=== PATIENT | female | born 1975 | race Caucasian/White ===

== ENCOUNTER 2023-07-06 08:11 | Outpatient (CLI) | payer BC, SELFPAY ==
--- NOTE | 2023-07-06 08:15 | CRLHL7_ITS ---
For Patients: As a result of the Century Cures Act, medical imaging exams and procedure reports are released immediately into your electronic medical record. You may view this report before your referring provider. If you have questions, please contact your health care provider. INDICATION: First trimester scan, establish dates. COMPARISON: None. TECHNIQUE: Real-time soto-scale imaging of the pelvis was performed. FINDINGS: Intrauterine gestational sac is present with a mean sac diameter of 3.3 cm, 8 weeks 3 days. A small pole is present measuring 4.8 millimeters, 6 weeks 1 day, no heart tones. Subchorionic hemorrhage to the left of the gestational sac measuring 2.3 x 1.7 x 0.4 cm. A normal yolk sac is not present. Corpus luteal cyst left ovary. No excess pelvic free fluid. IMPRESSION: Nonviable gestation. Dictated by Carl Arellano MD @ 07/06/2023 11:05:22 AM (Electronically Signed)
== END 2023-07-06 08:12 | disposition home or self-care (01) ==
PROVIDERS: Visit Provider Advanced Practice Midwife
DX: Z34.91 Encounter for supervision of normal pregnancy, unspecified, first trimester (principal); O02.1 Missed abortion
CPT/HCPCS: 76817; 84702; 86900; 86901

== ENCOUNTER 2023-07-09 09:45 | Outpatient (CLI) | payer BC, SELFPAY | END 2023-07-09 09:46 | disposition home or self-care (01) | LOC: NFLDREF 07-11 10:06 | PROVIDERS: Visit Provider Advanced Practice Midwife | DX: Z34.81 Encounter for supervision of other normal pregnancy, first trimester (principal) | CPT/HCPCS: 84702 ==

== ENCOUNTER 2023-07-17 21:57 | Emergency (ER) | payer BC, SELFPAY ==
--- NOTE | 2023-07-17 22:04 | ED.GENADULT ---
HPI - General Adult General Date Seen: 07/17/23 Chief complaint: Vaginal Bleeding Stated complaint: 6 Weeks-Possible miscarage Time Seen by Provider: 07/17/23 22:04 History of Present Illness HPI narrative: This is a pleasant 48-year-old female who presents to the ER today for pelvic pain and concern for incomplete miscarriage. She is a . She has a 17-year-old daughter. No previous known history of miscarriages or other obstetric complications. She discovered she was unexpectedly recently. She has already had an outpatient visit with the rubbish collection supervisor. She had a clinic visit on 07/06 because of some vaginal bleeding. At that time pelvic ultrasound showed a nonviable intrauterine . Follow[place]up [place] [id number]. She elected to manage the miscarriage expectantly and did not want any procedure. She started having some light vaginal bleeding 2 days ago. It was pretty light yesterday it. She was feeling fairly normal this morning. This evening she started to have fairly significant pelvic pain affecting her the midline as well as both lower quadrants. It was quite intense and not controllable with meds at home so she came here to the ER. Around the time she came here to the ER she experienced a gush of red vaginal bleeding. Right after she arrived here in the ER she actually did pass a bit of blood with clots and may1/4 cup size piece of tissue. After passing that she says her pain is much improved, but not resolved. Ongoing bleeding is light. She is not lightheaded. No fever or chills. No history of coagulopathy. In review of her medical record I see that she had a quantitative hCG on 07/06/2023 that was 13,787. Follow-up hCG on 07/09 was declining to 7648 Blood type is O-positive. US 07/06/23 FINDINGS: Intrauterine gestational sac is present with a mean sac diameter of 3.3 cm, 8 weeks 3 days. A small pole is present measuring 4.8 millimeters, 6 weeks 1 day, no heart tones. Subchorionic hemorrhage to the left of the gestational sac measuring 2.3 x 1.7 x 0.4 cm. A normal yolk sac is not present. Corpus luteal cyst left ovary. No excess pelvic free fluid. IMPRESSION: Nonviable gestation. Related Data Home Medications Medication Instructions Recorded Confirmed No Known Home Medications 07/17/23 07/17/23 Allergies Allergy/AdvReac Type Severity Reaction Status Date / Time Penicillins Allergy Intermediate Hives Verified 07/17/23 22:16 [facility] Social History (Updated 07/06/23 @ 09:41 by Romy Flor ~ INFORMATICA ARCHITECT, INFORMATICA ARCHITECT) What is your current living situation?: I presently have a place to live Problems where you live: no known problems In the past 12 months, utilities in danger of being shut off: no In past 12 months, lack of transportation kept you from medical appts, meetings, work, or getting things needed for daily living: no In the past 12 mos, have been you worried that your food would run out before you had money to buy more?: never true In the past 12 mos, the food you bought just didn't last and you didn't have money to buy more?: never true Smoking Status: Never smoker Second hand tobacco smoke exposure: No How often do you have a drink containing alcohol: never AUDIT-C Alcohol total score: 0 Non-prescribed substance use: denies use How often does anyone, including family, friends and others, physically hurt you: never How often does anyone, including family, friends and others, insult or talk down to you: never How often does anyone, including family, friends and others, threaten you with harm: never How often does anyone, including family, friends and others, scream or curse at you: never Little interest or pleasure in doing things: not at all Feeling down, depressed, or hopeless: not at all Exam Narrative: Exam Narrative: Constitutional: Appears well-developed and well-nourished. Alert. Polite, Conversant. Non toxic. She politely declines offer of any pain medication, even Tylenol. HENT: Head: Atraumatic. Nose: Nose normal. Mouth/Throat: Oral mucosa is clear and moist. no trismus. Eyes: Conjunctivae normal. EOM normal. Pupils equal, round, and reactive to light. No scleral icterus. Neck: Normal range of motion. Neck supple. No tracheal deviation present. Cardiovascular: Normal rate, regular rhythm. No gallop. No friction rub. No murmur heard. Symmetric radial artery pulses normal cap refill x4 extremities. Pulmonary/Chest: Effort normal. No stridor. No respiratory distress. No wheezes. No rales. No rhonchi . Abdominal: Soft. No distension. No mass. Suprapubic tenderness. No rebound. No guarding. Musculoskeletal: RUE: Normal range of motion. No tenderness. No deformity LUE: Normal range of motion. No tenderness. No deformity RLE: Normal range of motion. No edema. No tenderness. No deformity LLE: Normal range of motion. No edema. No tenderness. No deformity Neurological: Alert and oriented to person, place, and time. Normal strength. CN II-VII intact. No sensory deficit. GCS eye subscore is 4. GCS verbal subscore is 5. GCS motor subscore is 6. Normal coordination Skin: Skin is warm and dry. No rash noted. No pallor. Normal capillary refill. Psychiatric: Normal mood. Normal affect. Const: Vital Signs, click to edit/add: Vital Signs - 24 hr 07/17/23 22:14 Temperature 98.2 F Pulse Rate [Right Pulse Oximeter] 79 Respiratory Rate 20 Blood Pressure [Ri ght Upper Arm] 97/69 Pulse Oximetry 100 Oxygen Delivery Me thod Room Air Course Vital Signs Vital signs: Initial Vital Signs Temperature 98.2 F 07/17/23 22:14 Temperature Source Temporal Artery Scan 07/17/23 22:14 Pulse Rate 79 07/17/23 22:14 Respiratory Rate 20 07/17/23 22:14 Blood Pressure 97/69 07/17/23 22:14 Blood Pressure Mean 78 07/17/23 22:14 Blood Pressure Position Sitting 07/17/23 22:14 Pulse Oximetry 100 07/17/23 22:14 Oxygen Delivery Method Room Air 07/17/23 22:14 Vital Signs Temperature 98.2 F 07/17/23 22:14 Pulse Rate 79 07/17/23 22:14 Respiratory Rate 20 07/17/23 22:14 Blood Pressure 97/69 07/17/23 22:14 Pulse Oximetry 100 07/17/23 22:14 Oxygen Delivery Method Room Air 07/17/23 22:14 Temperature 98.2 F 07/17/23 22:14 Pulse Rate 79 07/17/23 22:14 Respiratory Rate 20 07/17/23 22:14 Blood Pressure 97/69 07/17/23 22:14 Pulse Oximetry 100 07/17/23 22:14 Oxygen Delivery Method Room Air 07/17/23 22:14 Medical Decision Making MDM Narrative Medical decision making narrative: This female patient presents for evaluation of pelvic pain and vaginal bleeding. She already has a known IUP that was proven to be nonviable based on ultrasound obtained 12 days ago in the clinic with her rubbish collection supervisor. She elected to manage this situation expectantly. She had a couple of days light spotting and then tonight had some severe pelvic cramping that led to a gush of blood and passage of tissue. After that, we monitored her here in the ER and she did well. No significant recurrent pain. No significant ongoing bleeding. No lightheadedness. Lab workup shows a hemoglobin 11.9. She is known to be O positive. No need for RhoGAM. Interestingly white count 14 .9 . No evidence for infection or fever. Suspect this may be demargination from stress reaction from miscarriage. Quantitative hCG is falling down to 659 tonight, down from 7000 last week and 13,000 prior to that. Minimal ongoing bleeding. At this point I do not think she is to be admitted for hemoglobin monitoring her transfusion I ordered a pelvic ultrasound to check for retained products of conception. The patient did not want to wait in the ER for the formal radiology interpretation of her pelvic ultrasound. Preliminary report from the a/c tech is that there is heterogeneous endometrium with vascularity that could be retained products of conception or blood products. No evidence for gestational sac or pole I considered a broad differential including ectopic , ovarian cyst, constipation, etc. Non gynecologic causes considered included , appendicitis, cholecystitis, volvulus, intraabdominal abscess, among others. In this patient, there are no signs of serious etiologies of abdominal pain. The workup here suggests incomplete miscarriage. At this point, patient is hemodynamically stable, hemoglobin is reassuring, and bleeding is not predicted to become life threatening. Plan is home, close follow-up with OB or with her rubbish collection supervisor. Review threatened miscarriage precautions, and return to ED for worsening pain, heavy vaginal bleeding (more than 1 pad soaked every hour). Questions were answered. She is eager for discharge. Prescription for [place]-4 tablets provided through [employer] that she can use it for any recurrent pain. She understands opiate and [place] precautions. Lab Data Labs: Lab Results 07/17/23 Range/Units 22:50 WBC 14.92 H (4.50-11.00) K/uL RBC 3.90 L (4.00-5.20) m/uL Hgb 11.9 L (12.0-16.0) gm/dL Hct 35.6 (33.0-51.0) % MCV 91 (80-100) fL MCH 31 (26-34) pg MCHC 33 (32-36) gm/dL RDW Coeff of Kathryn 12.9 (11.5-15.5) % Plt Count 198 (140-440) K/uL Neut % (Auto) 79.0 H (42.0-72.0) % Lymph % (Auto) 11.5 L (20-44) % Owsley % (Auto) 6.4 (0.0-11.0) % Eos % (Auto) 2.7 (0.0-7.0) % Baso % (Auto) 0.3 (0.0-3.0) % Neut # (Auto) 11.80 H (1.7-7.0) K/uL Lymph # (Auto) 1.70 (0.90-2.90) K/uL Owsley # (Auto) 1.00 H (0.00-0.90) K/UL Eos # (Auto) 0.40 (0.00-0.50) K/uL Baso # (Auto) 0.00 (0.00-0.30) K/uL Abs Immat Gran (auto) 0.00 (0.00-0.30) K/uL Imm/Tot Granulo (auto) 0.1 % HCG, Quant 659.58 mIU/mL Discharge Plan Discharge Clinical Impression: Incomplete Patient Disposition: Home, Self-Care Condition: Stable Instructions: Miscarriage (ED) Additional Instructions: As we discussed, please return to the ER right away if you have any concerns especially worsening pelvic pain, heavy bleeding, fever, unusual vaginal bleeding or discharge, dizziness, or if you have any concerns. Even if your getting better, Call your rubbish collection supervisor or the [facility] at [phone] tomorrow to schedule a follow-up appointment for the next 1-2 days. Prescriptions: No Action No Known Home Medications Follow Up/Referrals: Provider,Not a Local [Primary Care Provider] - Stand Alone Forms: [employer] Info Instructions
[2023-07-17 22:14] VITALS: BP 97/69; PULSE 79; RESP 20; TEMP 36.8; O2SAT 100; BMI 24.1
--- NOTE | 2023-07-17 22:35 | US_ITS ---
Final Report Patient: KAPIL DE LA TORRE Facility:?[facility] Patient ID:?[id number] Site Patient ID:?[id number]. Site :?[id number] Study:?US Pelvis TV-07/18/2023 12:13:18 AM Ordering Physician:?ED Final Report: INDICATION: Abnormal vaginal bleeding. Recent early loss. TECHNIQUE: Transvaginal ultrasound examination of the pelvis was performed. Grayscale and color Doppler images were obtained. COMPARISON: Pelvic ultrasound 07/06/2023 FINDINGS: Uterus: Normal in size normal in echotexture. No suspicious masses. Endometrium: Heterogeneous, thickened endometrium measuring 1.5 cm with vascularity on color Doppler imaging. An intrauterine gestational sac is no longer identified. Right ovary: Measures 3.2 x 1.8 x 1.5 cm. No suspicious masses. The arterial and venous flow waveform on color Doppler imaging appear within normal limits. Left ovary: Measures 3.1 x 2.4 x 1.9 cm. No suspicious masses. Normal arterial and venous flow on color Doppler imaging. Cul-de-sac: No free fluid. IMPRESSION: Heterogeneous, thickened endometrium with evidence of vascularity, raises the possibility of retained products of conception. An intrauterine gestational sac is no longer identified. Dictated by Brian Rush MD @ 07/18/2023 1:36:45 AM (Electronic Signature)
[2023-07-17 22:57] LABS: Basophils Percent Auto 0.3 % (0.0-3.0); Eosinophils Percent Auto 2.7 % (0.0-7.0); Hematocrit 35.6 % (33.0-51.0); Hemoglobin* 11.9 gm/dL (12.0-16.0); Immature Granulocytes Pct Auto 0.1 %; Lymphocytes Percent Auto 11.5 % (20-44); Mean Corpuscular HGB Conc 33 gm/dL (32-36); Mean Corpuscular Hemoglobin 31 pg (26-34); Mean Corpuscular Volume 91 fL (80-100); Monocytes Percent Auto 6.4 % (0.0-11.0); Platelet Count* 198 K/uL (140-440); RDW Coefficient of Variation % 12.9 % (11.5-15.5); White Blood Count* 14.92 K/uL (4.50-11.00)
[2023-07-17 22:59] LABS: Slide Review Reflex No
== END 2023-07-18 00:53 | disposition home or self-care (01) ==
PROVIDERS: Emergency Provider Emergency Medicine
DX: O03.4 Incomplete spontaneous abortion without complication (principal)
CPT/HCPCS: 36415; 76830; 84702; 85025; 88305; 99283; 99284

== ENCOUNTER 2024-04-23 13:40 | Outpatient (CLI) | payer BC, SELFPAY ==
[2024-04-23 19:12] LABS: Chlamydia DNA Amplified* NOT DETECTED (No Detected); GC DNA Amplified* NOT DETECTED (No Detected)
[2024-04-26 05:23] LABS: HPV Source Cervical; HPV, High Risk by TMA Not Detected
== END 2024-04-23 13:41 | disposition home or self-care (01) ==
PROVIDERS: Visit Provider Advanced Practice Midwife
DX: Z01.419 Encounter for gynecological examination (general) (routine) without abnormal findings (principal); Z12.4 Encounter for screening for malignant neoplasm of cervix; Z11.59 Encounter for screening for other viral diseases; Z13.6 Encounter for screening for cardiovascular disorders; Z13.1 Encounter for screening for diabetes mellitus; Z11.3 Encounter for screening for infections with a predominantly sexual mode of transmission; Z13.0 Encounter for screening for diseases of the blood and blood-forming organs and certain disorders involving the immune mechanism
CPT/HCPCS: 80061; 86592; 86703; 86706; 86803; 87340; 87491; 87591; 87624; 87625; 88141; 88142

== ENCOUNTER 2024-07-24 10:02 | Outpatient (CLI) | payer BC, SELFPAY ==
--- NOTE | 2024-07-24 10:15 | CRLHL7_ITS ---
For Patients: As a result of the Century Cures Act, medical imaging exams and procedure reports are released immediately into your electronic medical record. You may view this report before your referring provider. If you have questions, please contact your health care provider. BILATERAL SCREENING MAMMOGRAM WITH COMPUTER-AIDED DETECTION AND TOMOSYNTHESIS TECHNIQUE: CC and MLO views were obtained. These mammographic images have been obtained using full-field digital technique. These mammographic images were interpreted with the benefit of computer-aided detection. Breast Tomosynthesis was used in this interpretation. COMPARISON FILM: Baseline. FINDINGS: The breasts are heterogeneously dense, which may obscure small masses IMPRESSION: There is no radiographic evidence for malignancy. ASSESSMENT: BI-RADS Category 1: Negative RECOMMENDATION: Routine screening mammogram in 1 year. A lay language report of this examination will be provided to the patient. Carl Arellano M.D. Diagnostic Radiologist [email or web address] Transcribed: 2:50 p.nasrin mercer/Dictated by: Carl Arellano MD @ 07/29/2024 12:21:00 PM (Electronically Signed)
== END 2024-07-24 10:03 | disposition home or self-care (01) ==
LOC: MAMMO 10:03
PROVIDERS: Visit Provider Advanced Practice Midwife
DX: Z12.31 Encounter for screening mammogram for malignant neoplasm of breast (principal); R92.333 Mammographic heterogeneous density, bilateral breasts
CPT/HCPCS: 77063; 77067